=== PATIENT | female | born 1945 ===

== ENCOUNTER 2017-05-29 08:52 | Outpatient (CLI) | payer OTHER | END 2017-05-29 08:54 | disposition home or self-care (01) | LOC: SONOGRAMA 08:52 | DX: E04.2 Nontoxic multinodular goiter (principal) ==

== ENCOUNTER 2018-07-24 11:20 | Outpatient (CLI) | payer OTHER | END 2018-07-24 11:30 | disposition home or self-care (01) | LOC: SONOGRAMA 11:20 | DX: M79.642 Pain in left hand (principal) ==